=== PATIENT | female | born 1975 | race Caucasian/White ===

== ENCOUNTER 2017-03-09 15:31 | Emergency (ER) | payer MEDICAID ==
[~2017-03-09 15:31] MED LIST: ATIVAN2 MG PO; BENADRYL25 MG PO; ZOCOR20 MG PO
== END 2017-03-09 17:41 | disposition left against medical advice (07) ==
LOC: D.ER 15:31
DX: T14.8 Other injury of unspecified body region (principal); S16.1XXA Strain of muscle, fascia and tendon at neck level, initial encounter; Y04.2XXA Assault by strike against or bumped into by another person, initial encounter; Y93.89 Activity, other specified; Y92.89 Other specified places as the place of occurrence of the external cause; F41.8 Other specified anxiety disorders; F43.10 Post-traumatic stress disorder, unspecified

== ENCOUNTER 2017-03-09 18:02 | Emergency (ER) | payer MEDICAID | END 2017-03-09 22:20 | disposition home or self-care (01) | LOC: D.ER 18:02 | DX: M54.2 Cervicalgia (principal) ==

== ENCOUNTER 2017-09-21 17:13 | Emergency (ER) | payer MEDICAID | END 2017-09-21 21:17 | disposition home or self-care (01) | LOC: D.ER 17:13 | DX: S39.012A Strain of muscle, fascia and tendon of lower back, initial encounter (principal); W01.0XXA Fall on same level from slipping, tripping and stumbling without subsequent striking against object, initial encounter; Y93.89 Activity, other specified; Y92.019 Unspecified place in single-family (private) house as the place of occurrence of the external cause; S80.211A Abrasion, right knee, initial encounter ==